=== PATIENT | male | born 1980 | race Caucasian/White ===

== ENCOUNTER 2020-11-21 17:40 | Emergency (ER) | payer BC ==
[~2020-11-21] VITALS: Ht 175.3 cm; Wt 69.0 kg
[2020-11-21 17:43] VITALS: BP 137/99
[2020-11-21] MEDS ORDERED: LIDOCAINE-MPF 1%, 5ML INFIL ONE (18:30)
[2020-11-21] MEDS ORDERED: LIDOCAINE-MPF 1%, 5ML ONE (18:34)
--- NOTE | 2020-11-21 18:54 | NUR ---
Report from [facility]
[2020-11-21] MEDS ORDERED: NEOSPORIN OINT. PKT 1 PACKET ONE (19:42)
--- NOTE | 2020-11-21 19:51 | NUR ---
WOUND DRESSED, PT AMB TO DC ALL QUESTIONS ADDRESSED.
== END 2020-11-21 18:59 | disposition home or self-care (01) ==
LOC: ED 18:30
DX: S61.213A Laceration without foreign body of left middle finger without damage to nail, initial encounter (principal); W26.0XXA Contact with knife, initial encounter; Y93.89 Activity, other specified; Y92.009 Unspecified place in unspecified non-institutional (private) residence as the place of occurrence of the external cause; Y99.8 Other external cause status
CPT/HCPCS: 12041; 99284